=== PATIENT | male | born 1990 | race Caucasian/White ===

== ENCOUNTER 2016-10-14 14:55 | Outpatient (CLI) | payer MEDICARE | END 2016-10-14 14:56 | disposition home or self-care (01) | LOC: HPCALD 14:55 | PROVIDERS: ATTEND Family Medicine | DX: R82.90 Unspecified abnormal findings in urine (principal) | CPT/HCPCS: 87086 ==

== ENCOUNTER 2017-03-17 10:35 | Outpatient (CLI) | payer MEDICARE, OTHER ==
[2017-03-17 12:10] LABS: Free T4 (Free Thyroxine) 0.84 ng/dL (0.70-1.48); Thyroid Stimulating Hormone 0.8159 uIU/mL (0.35-4.94)
--- NOTE | 2017-03-17 23:04 | RAD ---
ABDOMEN 03/17/17 Supine views of the abdomen show mild increase in fecal material, but it is not truly excessive. The re is nonspecific mild gaseous distention of bowel with no sign of obstruction. A generator is seen over the right lower quadrant with leads leading from it towards the spine. A vena cava filter is no juanita in place. The lung bases are clear. IMPRESSION: Nonspecific abdominal findings. Any constipation present is relatively mild. POS: HOME
--- NOTE | 2017-03-18 00:44 | ULT ---
The thyroid is enlarged. The right lobe measures 5.5 x 1.7 x 1.8 cm. Again seen is a complex cyst in its lower pole. Maximal diameter today was measured at 1.5 cm which compares favorably with the janae or measurement of 1.3 cm on the old ultrasound. the lesion is mostly cystic. The left lobe measures 5.1 x 1.6 x 1.4 cm and appears normal otherwise. IMPRESSION: 1.5 cm complex cyst inferior tip of right lobe. Changes since the 2015 scan are fairly minimal. POS: HOME
== END 2017-03-17 10:36 | disposition home or self-care (01) ==
LOC: BUREKG 10:35
PROVIDERS: ATTEND Family Medicine
DX: K59.00 Constipation, unspecified (principal); E04.1 Nontoxic single thyroid nodule; I48.1 Persistent atrial fibrillation; I52 Other heart disorders in diseases classified elsewhere
CPT/HCPCS: 36415; 74000; 76536; 84439; 84443

== ENCOUNTER 2018-02-02 15:11 | Outpatient (CLI) | payer MEDICARE, OTHER ==
--- NOTE | 2018-02-02 19:55 | RAD ---
LEFT HAND THREE VIEWS: 02/02/18 No acute fracture was seen. The third MCP joint appears normal as do the carpal bones. There is a sma ll piece of bone near the tip of the ulnar styloid that appears to be due to an old injury there. IMPRESSION: No acute finding. POS: HOME
== END 2018-02-02 15:12 | disposition home or self-care (01) ==
LOC: BURRAD 15:11
PROVIDERS: ATTEND Family Medicine
DX: M79.642 Pain in left hand (principal)

== ENCOUNTER 2018-12-01 21:11 | Emergency (ER) | payer MEDICARE, OTHER ==
[2018-12-01] MEDS ORDERED: Lidocaine 2% w/ Epi 1:200K 10 ML VIAL ONE ×2 (21:31→21:33)
[2018-12-01] MEDS ORDERED: Lidocaine 2% 6 ML SYR ONE (21:34)
[2018-12-01] MEDS ORDERED: Metoprolol Tartrate 5 MG/5 ML VIAL ONE ×2 (22:11→22:26)
[2018-12-01] MEDS ORDERED: traMADol HCl 50 MG TAB ONE ×2 (22:19)
[2018-12-01 22:28] LABS: #Basophils 0.1 thou/uL (0.0-0.2); #Eosinphils 0.1 thou/uL (0.0-0.7); #Lymphocytes 1.8 thou/uL (1.20-3.40); #Monocytes 0.5 thou/uL (0.11-0.59); #Neutrophils 5.4 thou/uL (1.40-6.50); %Basophils 1.4 % (0.0-1.0); %Lymphocytes 22.6 % (21.0-51.0); %Monocytes 6.2 % (0.0-10.0); %Neutrophils 68.8 % (42.0-75.0); Hemoglobin 15.1 g/dL (14.0-18.0); Mean Corpuscular HGB CONC 33.1 g/dL (32.0-36.0); Mean Corpuscular Hemoglobin 31.3 pg (27.0-31.0); Mean Corpuscular Volume 94.6 fL (78.0-98.0); Mean Platelet Volume 7.8 fL (7.4-10.4); Platelet Count 184 thou/uL (130-400); RBC Distribution Width 13.4 % (11.5-14.5); Red Blood Cell (RBC) Count 4.82 mill/uL (4.70-6.10); White Blood Cell (WBC) Count 7.8 thou/uL (4.8-10.8)
[2018-12-01 22:41] LABS: ALT (SGPT) 21 U/L (8-55); AST (SGOT) 22 U/L (5-34); Albumin 4.6 g/dL (3.5-5.0); Alkaline Phosphatase 73 U/L (40-150); Anion Gap 17 mmol/L (10-20); BUN (Urea Nitrogen) 15 mg/dL (8.9-20.6); Bilirubin, Total 0.4 mg/dL (0.2-1.2); Calc. Creatinine Clearance 0 mL/min (70-130); Calcium 9.8 mg/dL (7.8-10.44); Carbon Dioxide 24 mmol/L (22-29); Chloride 103 mmol/L (98-107); Estimated GFR-MDRD Greater than 90; Globulin 3.4 g/dL (2.4-3.5); Glucose 75 mg/dL (70-105); Potassium 3.6 mmol/L (3.5-5.1); Sodium 140 mmol/L (136-145)
[2018-12-01 23:01] LABS: Clarity Hazy (Clear)
[2018-12-01 23:02] LABS: Bilirubin Negative (Negative); Blood, Urine Trace (Negative); Glucose, Urine (Dipstick) Negative (Negative); Leukocyte Trace (Negative); Nitrite Positive (Negative); Protein, Urine (Dipstick) Negative (Neg-Trace); Urobilinogen 0.2 mg/dL (Less than 2)
[2018-12-01 23:08] LABS: Bacteria/HPF 3+ HPF (None Seen); RBC/HPF 0-3 HPF (0-3); Squamous Epithelial 0-3 HPF (0-3); WBC/HPF 21-50 HPF (0-3)
[2018-12-01 23:10] LABS: Amphetamine Detected (NotDetected); Barbiturates Screen Not Detected (NotDetected); Benzodiazepine Screen Detected (NotDetected); Cocaine Metabolite Screen Not Detected (NotDetected); Methadone Not Detected (NotDetected); Methamphetamine Not Detected (NotDetected); Opiate Screen Not Detected (NotDetected); Oxycodone Screen Not Detected (NotDetected); Phencyclidine (PCP) Not Detected (NotDetected); THC/Cannabinoid Screen Detected (NotDetected); Tricyclic Screen Not Detected (NotDetected)
[2018-12-01 23:11] LABS: Medtox Control Line Valid? VALID (VALID)
[2018-12-01] MEDS ORDERED: Metoprolol Tartrate 25 MG TAB PO SCH (23:15)
[2018-12-01] MEDS ORDERED: Nitrofurantoin Monohyd/M-Cryst 100 MG CAP ONE (23:26)
--- NOTE | 2018-12-02 07:53 | RAD ---
PORTABLE CHEST: Date: 12/01/18 An AP portable film at 0956 hours is compared with an 03/20/15 study. FINDINGS: The heart is normal in size and the lungs are clear. No infiltrate or effusion seen. Mediastinum appe ars normal. IMPRESSION: No acute thoracic findings. POS: HOME
== END 2018-12-01 23:35 | disposition home or self-care (01) ==
LOC: BURERS 21:11
DX: S81.811A Laceration without foreign body, right lower leg, initial encounter (principal); N39.0 Urinary tract infection, site not specified; R00.0 Tachycardia, unspecified; I48.91 Unspecified atrial fibrillation; Z87.891 Personal history of nicotine dependence; Z79.899 Other long term (current) drug therapy; W26.8XXA Contact with other sharp object(s), not elsewhere classified, initial encounter
CPT/HCPCS: 12001; 36415; 51701; 71045; 80053; 80306; 81003; 81015; 83605; 84443; 84484; 85025; 87040; 87077; 87086; 87186; 93005; 94760; 96374

== ENCOUNTER 2019-06-13 14:32 | Outpatient (CLI) | payer MEDICARE, OTHER ==
--- NOTE | 2019-06-13 21:13 | RAD ---
ABDOMEN: 06/13/19 Supine views are compared with an 01/12/18 study. An electronic medical record coder is present over the right lower quadrant. This plus the patient's ostomy partially obscures some of these areas. The abdominal gas pattern is normal. There is no sign of obstruction. A moderate amount of fecal mat erial is present in the colon. There is certainly no obstruction. An inferior vena cava filter is se en at the L2 level as before. There is subluxation of the right hip and that the femoral head does no t fit squarely within the acetabulum, however, this is no different than the 2018 study. I see no definite opaque foreign body. There are two very small calcific densities seen in the midlin e pelvic region that I doubt are related to any recent surgery and even if so would not be problemati c. IMPRESSION: No significant finding. POS: HOME
== END 2019-06-13 14:33 | disposition home or self-care (01) ==
LOC: BURRAD 14:32
PROVIDERS: ATTEND Family Medicine
DX: R10.84 Generalized abdominal pain (principal)
CPT/HCPCS: 74018

== ENCOUNTER 2019-07-21 11:12 | Outpatient (CLI) | payer MEDICARE, OTHER ==
--- NOTE | 2019-07-21 18:08 | RAD ---
RIGHT HAND THREE VIEWS: 07/21/19 No bone or joint abnormality was seen. No cause for hand pain was appreciated. The carpal bones appea r normal. IMPRESSION: No significant findings. POS: HOME
--- NOTE | 2019-07-21 18:11 | RAD ---
CHEST TWO VIEWS: 07/21/19 Comparison is made with a 12/01/18 study. The heart is normal in size and the lungs are clear. No acute infiltrate or effusion was seen. There is no vascular congestion or edema. A medical office assistant instructor is seen overlying the left hemithorax. IMPRESSION: No acute thoracic finding. POS: HOME
--- NOTE | 2019-07-21 18:12 | RAD ---
LEFT HIP TWO VIEWS: 07/21/19 No fracture was appreciated. There is minor narrowing of the superior part of the joint space, but th ere is no dislocation. Some heterotopic bone formation is seen adjacent to the trochanters that is pr obably longstanding. The adjacent pubic ring appears intact. IMPRESSION: No acute finding. POS: HOME
--- NOTE | 2019-07-21 18:13 | RAD ---
SKULL FOUR VIEWS: 07/21/19 No bony anomalies were seen. The skull is normal in appearance. The sella is normal in size. The sphe noid sinus is clear. IMPRESSION: No significant findings. POS: HOME
--- NOTE | 2019-07-21 18:14 | RAD ---
MANDIBLE FOUR VIEWS: 07/21/19 No gross anomaly was seen on the films. No obvious fracture or area of bony destruction was evident, however, CT would be best at showing more subtle findings. IMPRESSION: No significant changes seen. POS: HOME
--- NOTE | 2019-07-21 18:16 | RAD ---
SINUSES THREE VIEWS: 07/21/19 Review of a 06/05/19 CT of the facial bones was done which showed mucosal thickening in the right maxi llary sinus. Today's exam does show some mild mucosal thickening in the right maxillary sinus. The other paranasal sinuses seem clear. No fractures or areas of bony destruction were seen. The patient is basically ed entulous, but no gross mandibular abnormalities were noted. IMPRESSION: Mild thickening in the right maxillary sinus. POS: HOME
== END 2019-07-21 11:13 | disposition home or self-care (01) ==
LOC: BURRAD 11:12
PROVIDERS: ATTEND Family Medicine
DX: M25.352 Other instability, left hip (principal); M79.641 Pain in right hand; M26.9 Dentofacial anomaly, unspecified; R05 Cough
CPT/HCPCS: 70110; 70220; 70260; 71046

== ENCOUNTER 2019-07-29 15:02 | Emergency (ER) | payer MEDICARE, OTHER ==
[~2019-07-29 15:02] MED LIST: Iopamidol 370 76% 100 ML VIAL ONE
[2019-07-29 16:06] LABS: Bilirubin Negative (Negative); Blood, Urine Trace (Negative); Clarity Clear (Clear); Glucose, Urine (Dipstick) Negative (Negative); Leukocyte Small (Negative); Nitrite Negative (Negative); Protein, Urine (Dipstick) Negative (Neg-Trace); Urobilinogen 0.2 mg/dL (Less than 2)
[2019-07-29 16:08] LABS: Bacteria/HPF Rare-Few HPF (None Seen); RBC/HPF 0-3 HPF (0-3); Squamous Epithelial 0-3 HPF (0-3); WBC/HPF 0-3 HPF (0-3)
[2019-07-29 16:30] LABS: #Basophils 0.1 thou/uL (0.0-0.2); #Eosinphils 0.1 thou/uL (0.0-0.7); #Monocytes 0.3 thou/uL (0.11-0.59); #Neutrophils 2.9 thou/uL (1.40-6.50); %Basophils 1.5 % (0.0-1.0); %Eosinophils 1.4 % (0.0-10.0); %Lymphocytes 37.8 % (21.0-51.0); %Monocytes 4.9 % (0.0-10.0); %Neutrophils 54.5 % (42.0-75.0); Hemoglobin 16.7 g/dL (14.0-18.0); Mean Corpuscular HGB CONC 31.8 g/dL (32.0-36.0); Mean Corpuscular Hemoglobin 31.1 pg (27.0-31.0); Mean Corpuscular Volume 97.7 fL (78.0-98.0); Mean Platelet Volume 8.1 fL (7.4-10.4); Platelet Count 238 thou/uL (130-400); RBC Distribution Width 13.6 % (11.5-14.5); Red Blood Cell (RBC) Count 5.38 mill/uL (4.70-6.10); White Blood Cell (WBC) Count 5.3 thou/uL (4.8-10.8)
[2019-07-29 16:44] LABS: ALT (SGPT) 25 U/L (8-55); AST (SGOT) 19 U/L (5-34); Albumin 5.3 g/dL (3.5-5.0); Alkaline Phosphatase 82 U/L (40-110); Anion Gap 15 mmol/L (10-20); BUN (Urea Nitrogen) 15 mg/dL (8.9-20.6); Bilirubin, Total 0.7 mg/dL (0.2-1.2); Calc. Creatinine Clearance 0 mL/min (70-130); Calcium 10.1 mg/dL (7.8-10.44); Carbon Dioxide 26 mmol/L (22-29); Chloride 105 mmol/L (98-107); Estimated GFR-MDRD Greater than 90; Globulin 3.7 g/dL (2.4-3.5); Glucose 98 mg/dL (70-105); Potassium 4.2 mmol/L (3.5-5.1); Sodium 142 mmol/L (136-145)
[2019-07-29] MEDS ORDERED: Morphine 4 MG/ML VIAL ONE (17:50)
[2019-07-29] MEDS ORDERED: HYDROcodone/Acetaminophen 10/325 mg Tablet ONE (17:52)
--- NOTE | 2019-07-29 18:51 | CT ---
CT of the chest, abdomen, and pelvis: 07/29/2019 HISTORY: Right-sided hydrocele COMPARISON: CT abdomen and pelvis 10/04/2017 TECHNIQUE: Axial CT imaging at 5 mm intervals from the thoracic inlet through the pubic symphysis wit h IV contrast. Coronal and sagittal reformatted imaging obtained. FINDINGS: No axillary, hilar, or mediastinal lymphadenopathy. The vascular structures appear patent. No pneumothorax is noted. There is a tiny nodule within the right lower lobe laterally measuring approximately 3 mm. No acute p ulmonary parenchymal abnormality is evident on either side. Osseous structures of the chest demonstrate no acute findings. There is bridging posterior element os teophyte formation involving the thoracic spine with findings suggesting prior posterior thoracic spine surgery. At the T6-7 level there is partial fusion at the intervertebral disc level and facet j oint level. No free intraperitoneal air or fluid is appreciated. The liver, gallbladder, and spleen appear grossly unremarkable. The pancreas, adrenal glands, and kid neys demonstrate no acute findings. There is an IVC filter present. There is an metallic device within the anterior aspect of the mid right abdomen. There is an associat ed catheter which extend into the thecal sac and terminates at the axial level of the lower thoracic spine. There is an ostomy within the left lower quadrant with a significant peristomal hernia containing sma ll bowel and mesenteric fat, unchanged when compared to a CT of the abdomen and pelvis performed 10/04/2017. There is mild distal colonic wall thickening and there is stool within the distal colon associated wi th a Henriquez's pouch, unchanged when compared to the 2018 exam as well. There is chronic dislocation of the right hip and there is synovial thickening and small volume bilat eral hip joint fluid, also unchanged when compared to 10/04/2017. Review of the osseous structures of the abdomen/pelvis demonstrate no acute findings. Partially image d right-sided hydrocele noted. Vascular structures of the abdomen/pelvis appear patent. No abdominal or pelvic lymphadenopathy is se en. IMPRESSION: No acute findings. Numerous incidental/chronic findings as detailed above.
--- NOTE | 2019-07-29 18:53 | RAD ---
5 views of the mandible: 07/29/2019 COMPARISON: 07/21/2019 HISTORY: Pain FINDINGS: The mandible demonstrates no evidence for fracture. No lytic or blastic lesion. Temporomand ibular joints appear grossly unremarkable. Imaging is unchanged when compared to the 07/21/2019 study. IMPRESSION: Stable radiographs of the mandible.
[2019-07-29] MEDS ORDERED: HYDROcodone/Acetaminophen 5/325 mg Tablet ONE (19:57)
[2019-07-29] MEDS ORDERED: cefTRIAXone\\ROCEPHIN 1 GM VIAL ONE (19:59)
== END 2019-07-29 20:15 | disposition short-term general hospital (02) ==
LOC: BURERS 15:02
DX: N50.811 Right testicular pain (principal); R00.0 Tachycardia, unspecified; R07.9 Chest pain, unspecified; R68.84 Jaw pain; M54.9 Dorsalgia, unspecified; I48.91 Unspecified atrial fibrillation; Z87.891 Personal history of nicotine dependence; Z79.899 Other long term (current) drug therapy
CPT/HCPCS: 70110; 71260; 74177; 80053; 81003; 81015; 83605; 85025; 87040; 87077; 87086; 93005; 96374; J0696; J2270; Q9967

== ENCOUNTER 2019-09-08 08:13 | Emergency (ER) | payer MEDICARE, MEDICAID ==
[2019-09-08 09:14] LABS: Bilirubin Negative (Negative); Blood, Urine Trace (Negative); Clarity Slightly Cloudy (Clear); Glucose, Urine (Dipstick) Negative (Negative); Leukocyte Small (Negative); Nitrite Negative (Negative); Protein, Urine (Dipstick) Negative (Neg-Trace); Urobilinogen 0.2 mg/dL (Less than 2)
[2019-09-08 09:20] LABS: Bacteria/HPF 1+ HPF (None Seen); RBC/HPF 0-3 HPF (0-3); Squamous Epithelial None Seen HPF (0-3)
[2019-09-08 10:14] LABS: #Basophils 0.1 thou/uL (0.0-0.2); #Lymphocytes 1.5 thou/uL (1.20-3.40); #Monocytes 0.3 thou/uL (0.11-0.59); #Neutrophils 4.5 thou/uL (1.40-6.50); %Basophils 1.4 % (0.0-1.0); %Eosinophils 0.6 % (0.0-10.0); %Lymphocytes 23.5 % (21.0-51.0); %Monocytes 4.5 % (0.0-10.0); %Neutrophils 69.9 % (42.0-75.0); Hemoglobin 17.2 g/dL (14.0-18.0); Mean Corpuscular HGB CONC 32.8 g/dL (32.0-36.0); Mean Corpuscular Hemoglobin 31.3 pg (27.0-31.0); Mean Corpuscular Volume 95.4 fL (78.0-98.0); Mean Platelet Volume 8.6 fL (7.4-10.4); Platelet Count 274 thou/uL (130-400); RBC Distribution Width 12.2 % (11.5-14.5); Red Blood Cell (RBC) Count 5.51 mill/uL (4.70-6.10); White Blood Cell (WBC) Count 6.5 thou/uL (4.8-10.8)
[2019-09-08 10:27] LABS: ALT (SGPT) 16 U/L (8-55); AST (SGOT) 18 U/L (5-34); Albumin 5.2 g/dL (3.5-5.0); Alkaline Phosphatase 70 U/L (40-110); Anion Gap 16 mmol/L (10-20); BUN (Urea Nitrogen) 10 mg/dL (8.9-20.6); Bilirubin, Total 0.8 mg/dL (0.2-1.2); Calc. Creatinine Clearance 0 mL/min (70-130); Calcium 10.2 mg/dL (7.8-10.44); Carbon Dioxide 24 mmol/L (22-29); Chloride 105 mmol/L (98-107); Estimated GFR-MDRD Greater than 90; Globulin 3.8 g/dL (2.4-3.5); Glucose 92 mg/dL (70-105); Potassium 3.5 mmol/L (3.5-5.1); Sodium 141 mmol/L (136-145)
[2019-09-08] MEDS ORDERED: HYDROcodone/Acetaminophen 5/325 mg Tablet ONE (10:58)
[2019-09-08] MEDS ORDERED: cefTRIAXone\\ROCEPHIN 1 GM VIAL ONE (11:39)
--- NOTE | 2019-09-08 15:05 | CT ---
CT OF THE BRAIN WITHOUT CONTRAST: Date: 09/08/2019 Comparison is made with the prior study dated 07/30/2019. There has been no adverse interval change. The ventricles are normal in size with no shift. No intrac ranial bleeding or extra-axial hematoma seen. There is no sign of stroke, mass, or edema. The skull a ppears intact. The visible paranasal sinuses are clear except for some minor mucosal thickening in so me of the right ethmoid air cells. This was present previously. IMPRESSION: No acute intracranial findings. Report called to Tricia in the ER at 1011 hours on 09/08/2019. CODE CR. POS: HOME
--- NOTE | 2019-09-08 15:07 | RAD ---
PELVIS 1 VIEW: Date: 09/08/2019 There is a chronic dislocation of the right hip, seen on prior scans back to at least 2018. No acute fracture was visible. Deformity of the proximal right femur suggests old injury here. The bony pelvis itself appears intact with no sign of fracture or any area of bony destruction. The left hip is unre markable. IMPRESSION: Chronic changes, but no acute findings. POS: HOME
--- NOTE | 2019-09-08 15:14 | RAD ---
LUMBAR SPINE 2 VIEWS: Date: 09/08/2019 AP and cross-table lateral views were provided. No fracture, disc space narrowing, or bony anomaly seen. All vertebra appear intact. The SI joints ar e symmetrical. A vena cava filter is noted in place at the L2-L3 level. IMPRESSION: No significant lumbar findings. POS: HOME
--- NOTE | 2019-09-08 15:15 | RAD ---
PORTABLE CHEST: Date: 09/08/2019 An AP portable film at 1026 hours is compared with the 07/21/2019 study. The heart remains normal in size and the lungs are clear. No infiltrate or effusion seen. The mediast inum appears normal. IMPRESSION: No acute findings. POS: HOME
== END 2019-09-08 12:28 | disposition home or self-care (01) ==
LOC: BURERS 08:13
DX: N39.0 Urinary tract infection, site not specified (principal); I49.9 Cardiac arrhythmia, unspecified; I48.91 Unspecified atrial fibrillation; Z86.718 Personal history of other venous thrombosis and embolism; Z87.891 Personal history of nicotine dependence; Z79.899 Other long term (current) drug therapy
CPT/HCPCS: 70450; 71045; 72100; 72170; 80053; 81003; 81015; 83605; 83880; 84484; 85025; 93005; 96374; J0696